=== PATIENT | female | born 1990 | race Caucasian/White ===

== ENCOUNTER 2020-07-18 10:51 | Emergency (ER) | payer MEDICAID ==
[~2020-07-18] VITALS: Ht 170.2 cm; Wt 121.0 kg
[2020-07-18 11:03] VITALS: BP 139/88
[2020-07-18 12:05] LABS: CLARITY URINE CLOUDY (CLEAR); COLOR URINE YELLOW (YELLOW); KETONES URINE NEGATIVE (NEGATIVE); LEUKOCYTE ESTERASE URINE 3+ (NEGATIVE); NITRITE URINE NEGATIVE (NEGATIVE); OCCULT BLOOD URINE TRACE (NEGATIVE); PH URINE 5.5 (4.5-8.0); PROTEIN URINE TRACE (NEGATIVE); SPECIFIC GRAVITY URINE 1.022 (1.005-1.030); UROBILINOGEN URINE 0.2 E.U./dL (0.2-1.0)
[2020-07-18] MEDS ORDERED: ACYC200C PO (13:09)
[2020-07-18] MEDS ORDERED: LIDOCAINE HCL 1% 20ML VIAL (Pyxis) INJ INFIL ONE (13:15)
[2020-07-18] MEDS ORDERED: AZITHROMYCIN 500 MG TABLET PO ONE (13:15)
[2020-07-18] MEDS ORDERED: CEFTRIAXONE SODIUM 250 MG/VIAL IM ONE (13:15)
[2020-07-18] MEDS ORDERED: ACYCLOVIR 200MG CAPSULE PO ONE (13:15)
[2020-07-18] MEDS ORDERED: SULF1TAB48 MT (13:46)
[2020-07-22 07:11] LABS: NEISSERIA GONORRHOEAE NAA Negative (Negative)
== END 2020-07-18 14:00 | disposition home or self-care (01) ==
LOC: ER 10:51
DX: N39.0 Urinary tract infection, site not specified (principal); E11.9 Type 2 diabetes mellitus without complications
CPT/HCPCS: 81003; 81025; 87086; 87210; 87491; 87591; 96372; 99284; J0696; J3490; Z7610; 99283